=== PATIENT | male | born 1965 | race Caucasian/White ===

== ENCOUNTER 2020-08-18 14:19 | Outpatient (REF) | payer OTHER, SELFPAY | END 2020-08-18 14:20 | disposition home or self-care (01) | LOC: HO.LAB 14:19 | PROVIDERS: Visit Provider Internal Medicine | DX: Z20.828 Contact with and (suspected) exposure to other viral communicable diseases (principal) | CPT/HCPCS: C9803; U0003 ==

== ENCOUNTER 2023-09-22 14:00 | Outpatient (RCR) | payer OTHER, SELFPAY | END 2023-09-28 08:33 | disposition home or self-care (01) | LOC: HO.PT 14:00 | PROVIDERS: Absent Provider Physician Assistant; PCP Internal Medicine; Visit Provider Orthopaedic Surgery | DX: Z96.652 Presence of left artificial knee joint (principal) | CPT/HCPCS: 97110; 97112; 97140; 97161; 97530 ==